=== PATIENT | female | born 2005 | race African-American/Black ===

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

== ENCOUNTER 2024-01-15 10:39 | Outpatient (AMB) | payer MEDICAID, SELFPAY ==
[2024-01-15 11:11] VITALS: BP 112/62; BMI 56.9
--- NOTE | 2024-01-15 11:11 | MHC.OFFVIS ---
Vital Signs 01/15/24 11:11 Height 5 ft 1 in Weight 301 lb BMI 56.9 BP 112/62 Intake Visit Reasons: pelvic pain Case Loader Operator Required: No Information Interpreted: clinical only Rehabilitation Case Coordinator: Rehabilitation Case Coordinator Present Allergies amoxicillin Adverse Reaction (Verified 01/15/24 11:14) Rash Medication List - Last Reconciled 01/15/24 by Jeannette Kitchen CNM levonorgestrel (Mirena) intrauterine Is last menstrual period known: No (IUD) HPI HPI pelvic pain: Details: Patient says she only sees Dr. Barone per his schedule was full. She wants to talk about getting her IUD taken she has had it for about a year and she says it was placed so that she would not get after her ectopic Dr. Barone put it in. She says he told her that it was really important to not get for 5-6 months. She would like to get in future. She had not really thought about what other method of control she might use. On questioning she thinks maybe pills. She says she would like it removed because it is uncomfortable lately when she has sex and sometimes she feels like period crampy the whole month. This started somewhat recently. [facility] Medical History Asthma Family History Paternal Grandmother Breast CA Social History Alcohol intake: never Current occupational status: student Current occupation: rt handed Female Reproductive History Menstrual Age of Menarche: 12 Duration of menses: <3 days control method: progestin IUCD Ectopics: 1 History of abnormal pap smear: No (no previous pap) Physical Exam Vital Signs: Last Vital Signs BP 112/62 01/15/24 11:11 BMI result Body Mass Index 56.9 Assessment & Plan Assessment & Plan (1) Family planning: Code(s): Z30.09 - Encounter for other general counseling and advice on contraception Category: Social Hx (2) Hx of ectopic : Code(s): Z87.59 - Personal history of other complications of , childbirth and the puerperium Category: Medical (3) Obesity, morbid, BMI 50 or higher: Code(s): E66.01 - Morbid (severe) obesity due to excess calories Category: Medical (4) Dyspareunia in female: Code(s): N94.10 - Unspecified dyspareunia Category: Medical (5) Presence of 52 mg levonorgestrel-releasing intrauterine device (IUD): Code(s): Z97.5 - Presence of (intrauterine) contraceptive device Category: Social Hx Plan See HPI. Explored the patient what she was told about how long she should avoid after the ectopic and what other health concerns she has she does not perceive is self as having any other health problems. Encouraged her to think carefully about what she would use control she thinks pills. She is sexually active. She recalled how the IUD was placed after the ectopic last year. I very much encouraged her to think about and begin to work on weight loss before placing herself at risk for in a place where she may desire a . For the pelvic discomfort with the IUD during intercourse I am going to order a pelvic ultrasound and we will have a visit after to discuss that. I discussed frankly increased risks of hypertension diabetes and many other complications in a with morbid obesity. Orders: Orders US pelvic and transvaginal Today E66.01 - Morbid (severe) obesity due to excess calories, N94.10 - Unspecified dyspareunia, Z30.09 - Encounter for other general counseling and advice on contraception, Z87.59 - Personal history of other complications of , childbirth and the puerperium, Z97.5 - Presence of (intrauterine) contraceptive device Coding Level of Care Code Est Pt Level 3 (20091) Diagnoses Family planning Z30.09 Hx of ectopic Z87.59 Obesity, morbid, BMI 50 or higher E66.01 Dyspareunia in female N94.10 Presence of 52 mg levonorgestrel-releasing intrauterine device (IUD) Z97.5
== END 2024-01-15 11:47 | disposition home or self-care (01) ==
LOC: HO.HWSM 10:39
PROVIDERS: PCP Pediatrics Adolescent Medicine; Visit Provider Advanced Practice Midwife
DX: Z30.09 Encounter for other general counseling and advice on contraception (principal); Z87.59 Personal history of other complications of pregnancy, childbirth and the puerperium; E66.01 Morbid (severe) obesity due to excess calories; N94.10 Unspecified dyspareunia; Z97.5 Presence of (intrauterine) contraceptive device
CPT/HCPCS: 99213

== ENCOUNTER → 2024-01-15 10:39 | Outpatient (BNVA) | payer MEDICAID, SELFPAY | PROVIDERS: PCP Pediatrics Adolescent Medicine; Visit Provider Advanced Practice Midwife | DX: Z30.09 Encounter for other general counseling and advice on contraception (principal); E66.01 Morbid (severe) obesity due to excess calories; N94.10 Unspecified dyspareunia; Z87.59 Personal history of other complications of pregnancy, childbirth and the puerperium; Z97.5 Presence of (intrauterine) contraceptive device | CPT/HCPCS: 99212 ==

== ENCOUNTER 2024-02-27 14:56 | Emergency (ER) | payer MEDICAID, SELFPAY ==
--- NOTE | 2024-02-27 15:18 | ED_ITS ---
HPI - General Adult General Chief complaint: Urogenital-Female Stated complaint: ? Time Seen by Provider: 02/27/24 15:22 Source: patient Mode of arrival: ambulatory Limitations: no limitations History of Present Illness ED Provider: Selina Membreno PA-C HPI narrative: 18 yo female presenting to the ER for evaluation of possible . she feels like her IUD may have moved and she might be . she used to be able to feel the IUD in place and used to have pain w/ intercourse. she saw her ob here in december and plan was for U/S but she has not gotten it yet. she no longer has pain with intercourse and no pain at rest or with sitting. no urinary symptoms. no abdominal pain. no N/V or headaches. she does not get a menstrual cycle since her IUD was placed over a year ago. she is here seeking blood test for . complaint: ? Related Data Home Medications ?Medication ?Instructions ?Recorded ?Confirmed levonorgestrel 21 mcg/24 hr (up to intrauterine 01/15/24 01/15/24 8 years) 52 mg intrauterine device (Mirena) Allergies Allergy/AdvReac Type Severity Reaction Status Date / Time amoxicillin AdvReac Rash Verified 02/27/24 15:22 Review of Systems Review of Systems: Yes all other systems are reviewed and are negative [facility] Past Medical History Medical History Asthma Family History Family History Paternal Grandmother Breast CA Social History Social History Alcohol intake: never Advance Directives: No Advance Directives Information Provided: No Current occupational status: student Current occupation: rt handed Physical Exam ED Vital Signs: Vital Signs - 24 hr 02/27/24 15:19 02/27/24 16:12 Temperature 98.6 F 98.6 F Pulse Rate 116 H 116 H Respiratory Rate 18 18 Blood Pressure 119/72 119/72 Pulse Oximetry 97 97 Oxygen Delivery Method Room Air Room Air BMI result Body Mass Index 57.9 Appearance: Alert. Oriented X3. No acute distress. HEENT: normal external inspection Neck: Normal inspection. Respiratory: No respiratory distress. speaking in complete sentences Abdomen: obese, normal inspection Skin: Skin warm and dry. Normal skin color. Normal skin turgor. No rashes. Extremities: No lower extremity edema. No joint swelling. Neuro/psych: Oriented X 3. grossly normal nonfocal Medical Decision Making Medical Decision Making [facility] Narrative: 18 yo female presenting for test. no pain from IUD. declining U/S today. she has no physical symptoms. family told her to come get checked out for possible . Urine test is negative. she is stable for discharge with outpatient follow up. Differential Diagnosis Differential Diagnoses: The differential diagnosis associated with the presentation includes possible , anxiety, IUD migration, less likely IUD perforation given no pain, IUD may have fallen out Lab Data [facility] Lab Attestation statement: I reviewed the patient's lab results. Labs: Lab Results 02/27/24 Range/Units 15:27 Urine Test NEGATIVE (NEGATIVE) External Record Review External record reviewed: Office record and Prior outpatient labs Tests considered The following testing was considered but not selected: pelvic U/S considered Critical Care Time Critical Care Time Critical Care Time: No Discharge Plan Discharge Clinical Impression: Anxiety Patient Disposition: Home, Self-Care Instructions: Anxiety (ED) Additional Instructions: you tested NEGATIVE for . Follow up with your front desk auxiliary If you develop new or worsening symptoms call 911 or come back to the ER for further evaluation. Prescriptions: No Action Mirena 21 mcg/24 hours (8 yrs) 52 mg intrauterine device intrauterine Interventions: ED Discharge Assessment Last Done: 02/27/24 16:12 Discharge Date/Time: 02/27/24 16:13 Print Language: [place]
[2024-02-27 15:19] VITALS: BP 119/72; PULSE 116; RESP 18; TEMP 37; O2SAT 97; BMI 57.9
[2024-02-27 15:38] LABS: UPreg QC Valid YES; Urine Pregnancy NEGATIVE (NEGATIVE)
[2024-02-27 16:12] VITALS: BP 119/72; PULSE 116; RESP 18; TEMP 37; O2SAT 97
== END 2024-02-27 16:13 | disposition home or self-care (01) ==
PROVIDERS: Physician Assistant; Emergency Provider Emergency Medicine
DX: F41.9 Anxiety disorder, unspecified (principal)
CPT/HCPCS: 81025; 99282

== ENCOUNTER 2024-03-10 06:59 | Emergency (ER) | payer MEDICAID, SELFPAY ==
--- NOTE | ~2024-03-10 | CT_ITS ---
EXAMINATION: CT ABDOMEN AND PELVIS WITH CONTRAST CLINICAL INFORMATION: Abdominal pain. COMPARISON: Ultrasound dated 10/04/2022 TECHNIQUE: Multidetector volumetric images were obtained from the superior aspect of the liver through the pubic symphysis following administration 85 mL of Omnipaque 350 intravenous contrast. Sagittal and coronal reformatted images were obtained on the technologist's workstation. Oral contrast: No This CT examination was performed using dose optimization techniques as appropriate, variously including the following: *Automated exposure control *Adjustment of mA and/or kV according to patient size (this includes techniques or standardized protocols for targeted exams where dose is matched to indication/reason for exam; i.e. extremities or head) *Use of iterative reconstruction technique DLP: 1198 mGy-cm FINDINGS: LUNG BASES: The visualized lung bases are unremarkable. LIVER, GALLBLADDER, AND BILIARY TREE: The liver is normal in size, shape, and attenuation. No focal hepatic lesion or biliary ductal dilatation is present. The gallbladder is unremarkable with no evidence of radiopaque gallstones, gallbladder wall thickening, or obvious pericholecystic inflammatory changes. PANCREAS: Unremarkable. SPLEEN: Unremarkable. ADRENAL GLANDS: Unremarkable. KIDNEYS AND URETERS: The kidneys are normal in size, shape, and attenuation. No hydronephrosis, hydroureter, or calculi seen. No perinephric stranding. BLADDER: Unremarkable. GASTROINTESTINAL TRACT: Stomach, small bowel, and colon are normal in caliber. No bowel wall thickening or surrounding inflammatory changes. Appendix is normal. No intraperitoneal free fluid or free air. ABDOMINAL WALL: No significant hernia is appreciated. LYMPH NODES: Normal. VASCULAR: Unremarkable. PELVIC VISCERA: IUD is situated in the lower uterine segment and cervix, abnormally positioned. Uterus is otherwise unremarkable. There is a 3.1 cm simple appearing right ovarian cyst, likely functional follicular cyst. This is of doubtful clinical significance. No recommended follow-up unless this is suspected to be a symptomatic region. OSSEOUS STRUCTURES: No fracture or malalignment. Mild arthrosis in the SI joints bilaterally. CT/CT abdomen pelvis w IV con IMPRESSION: 1. No acute intra-abdominal or intrapelvic abnormalities. 2. Malpositioned IUD in the lower uterine segment and cervix. Fleischner guidelines were followed.
[2024-03-10 07:10] VITALS: BP 126/87; PULSE 91; RESP 20; TEMP 37.2; O2SAT 100; BMI 68.4
--- NOTE | 2024-03-10 07:38 | ED.GENADULT ---
HPI - General Adult General Chief complaint: Abdominal Pain Stated complaint: Abd pain Time Seen by Provider: 03/10/24 07:37 Source: patient Mode of arrival: ambulatory Limitations: no limitations History of Present Illness ED Provider: Nuris Siddiqui PA-C HPI narrative: 18 year old female otherwise healthy, presenting the emergency department with new onset intermittent abdominal pain with heartburn for the past 2 days. She describes it as sharp pain with associated dizziness that predominately starts in the morning and gradually subsides after a few hours. She states the pain is better with food. Patient also reports light spotting of blood after urination yesterday. She states having IUD placement done 1 years old and has not had any menstrual cycle since then. Her last bowel movement was yesterday which she states was normal for her. She denies dysuria, discharge, fevers, back pain, chest pain, shortness of breath, headaches and visual changes. Onset (ago): day(s) (1) Relieving factors: none Exacerbating factors: none Associated symptoms: nausea/vomiting Treatments prior to arrival: none Related Data Home Medications ?Medication ?Instructions ?Recorded ?Confirmed levonorgestrel 21 mcg/24 hr (up to intrauterine 01/15/24 01/15/24 8 years) 52 mg intrauterine device (Mirena) Previous Rx's ?Medication ?Instructions ?Recorded omeprazole 20 mg capsule,delayed 20 mg PO DAILY #7 caps 03/10/24 release Allergies Allergy/AdvReac Type Severity Reaction Status Date / Time amoxicillin AdvReac Rash Verified 03/10/24 07:14 Review of Systems Constitutional: Constitutional: Reports no additional constitutional complaints, Denies chills, Denies fever(s) and Denies night sweats Eyes: Eyes: Reports no additional eye complaints, Denies blurry vision, Denies change in vision, Denies diplopia, Denies eye discharge, Denies loss of vision and Denies eye pain ENT: Denies dizziness Cardiovascular: Cardiovascular: Reports no additional cardiovascular complaints, Denies chest pain, Denies lightheadedness, Denies Loss of Consciousness and Denies dyspnea Respiratory: Respiratory: Reports no additional respiratory complaints and Denies dyspnea Gastrointestinal: Gastrointestinal: Reports no additional gastrointestinal complaints, Reports abdominal pain, Denies melena, Denies change in bowel habits, Denies change in stool character and Reports nausea Genitourinary: Genitourinary: Denies urinary frequency, Denies dysuria, Denies urinary incontinence, Denies urinary hesitancy and Denies urinary urgency Musculoskeletal: Musculoskeletal: Reports no additional musculoskeletal complaints, Denies numbness and Denies tingling Neurologic: Denies dizziness, Denies loss of vision, Denies numbness and Denies tingling Psychiatric: Psychiatric: Reports no additional psychiatric complaints Endocrine: Endocrine: Reports no additional endocrine complaints Hematologic/Lymphatic: Hematologic/Lymphatic: Reports no additional hematologic/lymphatic complaints Allergic/Immunologic: Allergic/Immunologic: Reports no additional allergic/immunologic complaints [facility] Past Medical History Attestation statement: The following information was validated with the patient. Source: old records reviewed and nursing notes reviewed Medical History Asthma Family History Family History Paternal Grandmother Breast CA Social History Social History Alcohol intake: never Advance Directives: No Advance Directives Information Provided: No Do you have a plan to hurt others: No Plan Current occupational status: student Current occupation: rt handed Physical Exam ED Vital Signs: Vital Signs - 24 hr 03/10/24 07:10 03/10/24 08:35 03/10/24 09:46 Temperature 98.9 F 98.5 F 98.5 F Pulse Rate 91 76 76 Respiratory Rate 20 16 16 Blood Pressure 126/87 141/76 H 141/76 H Pulse Oximetry 100 100 100 Oxygen Delivery Method Room Air Room Air Room Air BMI result Body Mass Index 68.4 Const General: cooperative, no acute distress, alert and awake Nutritional Appearance: well nourished Orientation/consciousness: patient oriented x3 Limitations: no limitations [facility] Head: Yes normal to inspection and Yes atraumatic Ears: hearing grossly normal bilaterally and external ears normal General nose exam: Normal external nose present, no nasal discharge noted and no epistaxis Face and sinus: Yes normal facial exam, No abrasion and No laceration Mouth: Normal oral and palatal mucosa present, no drooling and no muffled voice Eyes General: appearance normal, both eyes and all related structures Periorbital: periorbital findings normal Eyelids: Yes eyelids normal Conjunctivae: conjunctivae normal Pupils: Equal, round and reactive pupils present EOM: EOMs intact bilaterally Neck Neck: Yes normal visual inspection, Yes full ROM and Yes no lymphadenopathy Chest Chest palpation & inspection: normal inspection of the chest Resp Effort & Inspection: normal respiratory effort and able to speak in complete sentences GI Inspection: Yes normal to inspection Palpation (GI): Soft to palpation, not firm, nontender, no guarding and not rigid Neuro General: patient oriented x3 and moves all extremities Cranial nerves: Yes Equal, round and reactive pupils present Cognition (Neuro): normal cognition Extrem General: Yes normal to inspection, Yes full ROM and Yes capillary refill normal Psych Appearance: grossly normal Mental Status: mental status grossly normal Affect: normal affect Attitude: cooperative Thought process: Normal thought process present Thought content: Normal thought content present Insight: Good insight present (Psych) Medications Administered Discontinued Medications Generic Name Dose Route Start Last Admin Trade Name Freq PRN Reason Stop Dose Admin Sodium Chloride 1,000 mls @ 999 mls/hr 03/10/24 07:45 03/10/24 09:45 Ns IV 03/10/24 08:45 Infused .Q1H1M DEVAUGHN Infusion Iohexol 100 ml 03/10/24 08:29 03/10/24 08:30 Iohexol 350 Mg/Ml 100 Ml Infus..Btl IV 03/10/24 08:30 85 ml ONCE ONE Administration Ondansetron HCl 4 mg 03/10/24 07:39 03/10/24 08:33 Ondansetron Hcl 4 Mg/2 Ml Vial IVPUSH 03/10/24 07:40 4 mg ONCE ONE Administration Pantoprazole Sodium 40 mg 03/10/24 07:47 03/10/24 08:33 Pantoprazole Sodium 40 Mg/10 Ml Vial IVPUSH 03/10/24 07:48 40 mg ONCE ONE Administration Medical Decision Making Medical Decision Making MDM Narrative: Patient is a 18 year old assigned female at with no reported medical history of presenting to the emergency department today with intermittent upper and lower abdominal pain. Patient's physical exam was unremarkable. Patient's blood work was unremarkable. Patient's urine showed no acute process. Patient's CT abd/pelvis showed a malpositioned IUD and ovarian cysts but were otherwise unremarkable. Given patient's upper abdominal pain is improved with PO intake, I suspect it is a duodenal ulcer. Patient's lower abdominal pain is consistent with ovarian cyst rupture. I explained my physical exam findings as well as all test results to the patient. I answered all questions asked by the patient. I stressed the importance of the patient taking her medication as directed (either prescribed or as the over the counter packaging recommends). I stressed the importance of the patient following up with her primary care provider, a GI specialist, and an OBGYN. I stressed the importance of the patient returning to the emergency department immediately if her symptoms were to worsen or if she were to develop any dizziness, shortness of breath, difficulty breathing, chest pain, blurry vision, loss of vision, nausea, vomiting, abdominal pain, fever, chills, back pain, or any other complaints. Patient verbalized agreement and understanding with this treatment plan and discharge. Differential Diagnosis Differential Diagnoses: The differential diagnosis associated with the presentation includes Abdominal pain Epigastric pain Duodenal ulcer Ovarian cyst Admission/Observation Consideration of admission/observation: Escalation of care including admission/observation considered Patient would have been admitted to the hospital had her work up had any findings where hospital admission was appropriate and her clinical presentation warranted hospital admission. Lab Data [facility] Lab Attestation statement: I reviewed the patient's lab results. My interpretation of these results are in the [facility] Rationale portion of this note. 03/10/24 08:01 03/10/24 08:01 Labs: Lab Results 03/10/24 03/10/24 Range/Units 07:33 08:01 WBC 7.7 (4.8-10.8) X10*3/uL RBC 4.89 (4.20-5.50) X10*6/uL Hgb 12.9 (12.0-16.0) g/dl Hct 39.7 (37.0-47.0) % MCV 81.2 (80.0-98.0) fL MCH 26.4 L (27.0-33.0) pg MCHC 32.5 (31.0-35.0) g/dl RDW 13.7 (11.0-16.0) % Plt Count 321 (160-400) X10*3/uL MPV 9.8 (9.4-12.3) fL Immature Gran % (Auto) 0.4 (0.0-0.4) % Neut % (Auto) 67.4 (45-73) % Lymph % (Auto) 20.4 (20-40) % [place] % (Auto) 8.3 (2-11) % Eos % (Auto) 3.0 (0-4) % Baso % (Auto) 0.5 (0-2) % Lymph # (Auto) 1.6 (1.2-4.9) X10*3/uL [place] # (Auto) 0.6 (0.1-1.2) X10*3/uL Eos # (Auto) 0.2 (0.0-0.4) X10*3/uL Baso # (Auto) 0.0 (0.0-0.2) X10*3/uL Abs Immat Gran (auto) 0.03 (0.00-0.03) X10*3/uL Absolute Neuts (auto) 5.2 (2.0-8.3) x10*3/uL Absolute Nucleated RBC 0.000 (0.0-0.012) X10*3/uL Nucleated RBC % (auto) 0.0 (0.0-0.2) /100WBC Sodium 138 (135-145) mmol/L Potassium 4.0 (3.3-5.1) mmol/L Chloride 106 (96-108) mmol/L Carbon Dioxide 27 (22-29) mmol/L Anion Gap 9 L (12-20) BUN 13 (9-16) mg/dL Creatinine 0.72 (0.5-1.4) mg/dL Estim Creat Clear Calc 153.0 Estimated GFR > 60 Random Glucose 101 (60-115) mg/dL Calcium 9.3 (8.4-10.2) mg/dL Total Bilirubin 0.4 (0.0-1.0) mg/dL AST 15 (5-31) U/L ALT 17 (0-31) U/L Alkaline Phosphatase 45 (39-117) U/L Total Protein 7.1 (6.5-8.0) g/dL Albumin 3.7 (3.5-5.0) g/dL Lipase 16 (8-78) U/L Beta HCG, Quant < 2 mIU/mL Urine Color Yellow Urine Appearance Clear Urine pH 6.5 (5.0-9.0) Ur Specific [place] 1.025 (1.005-1.025) Urine Protein Negative (Neg-Trace) mg/dL Urine Glucose (UA) Negative (Negative) mg/dL Urine Ketones Negative (Negative) mg/dL Urine Blood Negative (Negative) Urine Nitrite Negative (Negative) Ur Leukocyte Esterase Negative (Negative) Urine RBC 0-2 (0-2) /HPF Urine WBC 0-5 (0-5) /HPF Ur Squamous Epith Cells 0-2 (0-2) /HPF Urine Bacteria None Seen (None Seen) Hyaline Casts 0-2 (0-2) /LPF Urine Test NEGATIVE (NEGATIVE) Independent Interpretation I performed an independent interpretation of an: CT Scan Interpretation: My interpretation is in agreement with the radiologist's impression of this imaging study. EXAMINATION: CT ABDOMEN AND PELVIS WITH CONTRAST CLINICAL INFORMATION: Abdominal pain. COMPARISON: Ultrasound dated 10/04/2022 TECHNIQUE: Multidetector volumetric images were obtained from the superior aspect of the liver through the pubic symphysis following administration 85 mL of Omnipaque 350 intravenous contrast. Sagittal and coronal reformatted images were obtained on the technologist's workstation. Oral contrast: No This CT examination was performed using dose optimization techniques as appropriate, variously including the following: *Automated exposure control *Adjustment of mA and/or kV according to patient size (this includes techniques or standardized protocols for targeted exams where dose is matched to indication/reason for exam; i.e. extremities or head) *Use of iterative reconstruction technique DLP: 1198 mGy-cm FINDINGS: LUNG BASES: The visualized lung bases are unremarkable. LIVER, GALLBLADDER, AND BILIARY TREE: The liver is normal in size, shape, and attenuation. No focal hepatic lesion or biliary ductal dilatation is present. The gallbladder is unremarkable with no evidence of radiopaque gallstones, gallbladder wall thickening, or obvious pericholecystic inflammatory changes. PANCREAS: Unremarkable. SPLEEN: Unremarkable. ADRENAL GLANDS: Unremarkable. KIDNEYS AND URETERS: The kidneys are normal in size, shape, and attenuation. No hydronephrosis, hydroureter, or calculi seen. No perinephric stranding. BLADDER: Unremarkable. GASTROINTESTINAL TRACT: Stomach, small bowel, and colon are normal in caliber. No bowel wall thickening or surrounding inflammatory changes. Appendix is normal. No intraperitoneal free fluid or free air. ABDOMINAL WALL: No significant hernia is appreciated. LYMPH NODES: Normal. VASCULAR: Unremarkable. PELVIC VISCERA: IUD is situated in the lower uterine segment and cervix, abnormally positioned. Uterus is otherwise unremarkable. There is a 3.1 cm simple appearing right ovarian cyst, likely functional follicular cyst. This is of doubtful clinical significance. No recommended follow-up unless this is suspected to be a symptomatic region. OSSEOUS STRUCTURES: No fracture or malalignment. Mild arthrosis in the SI joints bilaterally. CT/CT abdomen pelvis w IV con IMPRESSION: 1. No acute intra-abdominal or intrapelvic abnormalities. 2. Malpositioned IUD in the lower uterine segment and cervix. Fleischner guidelines were followed. Dictated By: Jaime Ren MD Signed By: Electronically signed by Jaime Ren MD 03/10/24 0914 Radiology Impression Discussion of test interpretation with radiology: I have reviewed the radiologist's reading. Discharge Plan Discharge Clinical Impression: Ovarian cyst, GERD (gastroesophageal reflux disease), Malpositioned intrauterine device Patient Disposition: Home, Self-Care Instructions: Ovarian Cyst (ED), Indigestion (ED) Additional Instructions: Given your upper abdominal pain is improved with eating, I'm suspicious you have a duodenal ulcer which may be contributing to your upper abdominal pain. Your CT scan showed evidence of a right ovarian cyst which is likely contributing to your lower abdominal pain. Additionally, it showed that your IUD is positioned inappropriately. You should follow up with an OBGYN for your IUD positioning and ovarian cyst and a GI specialist for your possible ulcer / upper abd pain. Follow up with your primary care provider. Return to the emergency department immediately if your symptoms worsen or if you develop any dizziness, shortness of breath, difficulty breathing, chest pain, blurry vision, loss of vision, nausea, vomiting, abdominal pain, fever, chills, back pain, or any other complaints. Prescriptions: New omeprazole 20 mg capsule,delayed release(DR/EC) 20 mg PO DAILY Qty: 7 0RF No Action Mirena 21 mcg/24 hours (8 yrs) 52 mg intrauterine device intrauterine Referrals: [facility] [Provider Group] (Call to establish and follow up with a GI specialist to discuss your upper abdominal pain.) Kell Lugo MD [Primary Care Provider] - Emmett Barone MD [Physician] - (Call to establish and follow up with an OBGYN for your malpositioned IUD and right ovarian cyst. ) Stand Alone Forms: Work/School Release Interventions: ED Discharge Assessment Last Done: 03/10/24 09:46 Discharge Date/Time: 03/10/24 09:47 Print Language: Greenlandic
[2024-03-10 07:43] LABS: Appearance Urine Clear; Color Urine Yellow; Glucose Urine UA Negative (Negative); Leukocyte Esterase Urine Negative (Negative); Nitrite Urine Negative (Negative); PH 6.5 (5.0-9.0); Specific Gravity - Urine 1.025 (1.005-1.025); UPreg QC Valid YES; Urine Blood Negative (Negative); Urine Ketones Negative (Negative); Urine Protein Negative (Neg-Trace)
[2024-03-10 07:44] LABS: Urine Pregnancy NEGATIVE (NEGATIVE)
[2024-03-10 07:48] LABS: Bacteria Urine None Seen (None Seen); Hyaline Casts Urine 0-2 /LPF (0-2); RBC Urine 0-2 /HPF (0-2); Squamous Epithelial Cell Urine 0-2 /HPF (0-2); WBC Urine 0-5 /HPF (0-5)
[2024-03-10 08:05] LABS: MANUAL DIFF FLAG NO
[2024-03-10 08:06] LABS: Basophils Percent Auto 0.5 % (0-2); Eosinophils Absolute Auto 0.2 X10*3/uL (0.0-0.4); Hematocrit 39.7 % (37.0-47.0); Hemoglobin 12.9 g/dl (12.0-16.0); Imm Gran Abs Auto 0.03 X10*3/uL (0.00-0.03); Imm Gran Pct Auto 0.4 % (0.0-0.4); Lymphocytes Absolute Auto 1.6 X10*3/uL (1.2-4.9); Lymphocytes Percent Auto 20.4 % (20-40); Mean Corpuscular HGB Conc 32.5 g/dl (31.0-35.0); Mean Corpuscular Hemoglobin 26.4 pg (27.0-33.0); Mean Corpuscular Volume 81.2 fL (80.0-98.0); Mean Platelet Volume 9.8 fL (9.4-12.3); Monocytes Absolute Auto 0.6 X10*3/uL (0.1-1.2); Monocytes Percent Auto 8.3 % (2-11); Neutrophils Absolute Auto 5.2 x10*3/uL (2.0-8.3); Neutrophils Percent Auto 67.4 % (45-73); Platelet Count 321 X10*3/uL (160-400); Red Blood Count 4.89 X10*6/uL (4.20-5.50); Red Cell Distribution Width 13.7 % (11.0-16.0); White Blood Count 7.7 X10*3/uL (4.8-10.8)
[2024-03-10 08:20] LABS: Alanine Aminotransferase 17 U/L (0-31); Albumin Level 3.7 g/dL (3.5-5.0); Alkaline Phosphatase 45 U/L (39-117); Anion Gap 9 (12-20); Aspartate Amino Transferase 15 U/L (5-31); Bilirubin Total 0.4 mg/dL (0.0-1.0); Blood Urea Nitrogen 13 mg/dL (9-16); Calcium 9.3 mg/dL (8.4-10.2); Carbon Dioxide 27 mmol/L (22-29); Chloride 106 mmol/L (96-108); Estimated Glomerular Filt Rate > 60; Glucose Random 101 mg/dL (60-115); Lipase 16 U/L (8-78); Sodium 138 mmol/L (135-145); Total Protein 7.1 g/dL (6.5-8.0)
[2024-03-10] MEDS: iohexoL 350 MG/ML 100 ML INFUS..BTL IV (08:30)
[2024-03-10] MEDS: Pantoprazole Sodium 40 MG/10 ML VIAL IVPUSH (08:33)
[2024-03-10] MEDS: 0.9 % Sodium Chloride 1,000 ML 999 ML IV (08:33)
[2024-03-10] MEDS: ondansetron HCL 4 MG/2 ML VIAL IVPUSH (08:33)
[2024-03-10 08:35] VITALS: BP 141/76; PULSE 76; RESP 16; TEMP 36.9; O2SAT 100
[2024-03-10 08:35] LABS: HCG Quantitative < 2 mIU/mL
[2024-03-10 09:46] VITALS: BP 141/76; PULSE 76; RESP 16; TEMP 36.9; O2SAT 100
== END 2024-03-10 09:47 | disposition home or self-care (01) ==
PROVIDERS: Physician Assistant Medical; Emergency Provider Emergency Medicine; PCP Pediatrics Adolescent Medicine
DX: N83.201 Unspecified ovarian cyst, right side (principal); T83.32XA Displacement of intrauterine contraceptive device, initial encounter; K21.9 Gastro-esophageal reflux disease without esophagitis; R10.30 Lower abdominal pain, unspecified; R42 Dizziness and giddiness; R12 Heartburn; R11.2 Nausea with vomiting, unspecified; R11.0 Nausea; Y76.8 Miscellaneous obstetric and gynecological devices associated with adverse incidents, not elsewhere classified; Y92.89 Other specified places as the place of occurrence of the external cause; Z79.899 Other long term (current) drug therapy
CPT/HCPCS: 36415; 74177; 80053; 81001; 81025; 83690; 84702; 85025; 96361; 96374; 96375; 99284; 99285; J2405; J2470; Q9967

== ENCOUNTER 2024-08-17 15:07 | Emergency (ER) | payer MEDICAID, SELFPAY ==
--- NOTE | ~2024-08-17 | US_ITS ---
CLINICAL HISTORY: Pelvic pain IUD malposition ovarian cyst US pelvis transabdominal and transvaginal with Doppler Comparison: CT/DE/SR - CT ABDOMEN PELVIS W IV CON - 03/10/24 08:20 EDT Findings: Transabdominal scanning performed for overall anatomy. Transvaginal scanning performed for additional detail. Normal size of the uterus. IUD is within the lower uterine segment. There is fluid in the lower uterine segment and cervical canal. No uterine mass. Ovaries normal in size and appearance. Both ovaries demonstrate color Doppler signal with normal arterial and venous spectral tracings. IMPRESSION: 1. Abnormally low position of IUD in lower uterine segment with fluid in the lower uterine segment and cervical canal. This document has been electronically signed by: Jesus Villanueva MD on 08/17/2024 20:20:50
[2024-08-17 15:36] VITALS: BP 145/86; PULSE 90; RESP 19; TEMP 36.7; O2SAT 98; BMI 63.7
--- NOTE | 2024-08-17 15:36 | ED_ITS ---
HPI - Abdominal Pain General Chief Complaint: Urogenital-Female Stated Complaint: lower abd/vaginal pain Time Seen by Provider: 08/17/24 17:46 Source: patient Mode of arrival: ambulatory Limitations: no limitations History of Present Illness ED Provider: HPI narrative: Patient's history of IUD placed 3 years ago with history of ovarian cyst complaining of pain in the lower abdomen for last 6 months got worse 1 week has pain while having intercourse no vaginal discharge has dysuria and frequency also feel nauseated no fever no chills Related Data Home Medications ?Medication ?Instructions ?Recorded ?Confirmed levonorgestrel 21 mcg/24 hr (up to intrauterine 01/15/24 01/15/24 8 years) 52 mg intrauterine device (Mirena) Previous Rx's ?Medication ?Instructions ?Recorded omeprazole 20 mg capsule,delayed 20 mg PO DAILY #7 caps 03/10/24 release desogestrel 0.15 mg-ethinyl 1 tab PO DAILY #168 tabs 08/17/24 estradiol 0.03 mg tablet (Apri) Allergies Allergy/AdvReac Type Severity Reaction Status Date / Time amoxicillin AdvReac Rash Verified 08/17/24 15:38 Review of Systems Review of Systems Yes all other systems are reviewed and are negative PMF Past Medical History Medical History Asthma Family History Family History Paternal Grandmother Breast CA Social History Social History Alcohol intake: never Advance Directives: No Advance Directives Information Provided: No Do you have a plan to hurt others: No Plan Current occupational status: student Current occupation: rt handed Physical Exam ED Vital Signs: Vital Signs - 24 hr 08/17/24 15:36 08/17/24 18:16 08/17/24 20:37 Temperature 98.1 F 98.6 F 98.3 F Pulse Rate 90 94 85 Respiratory Rate 19 16 18 Blood Pressure 145/86 H 120/66 144/65 H Pulse Oximetry 98 98 99 Oxygen Delivery Method Room Air Room Air Room Air BMI result Body Mass Index 63.7 Appearance: Alert. Oriented X3. No acute distress. ENT: Pharynx normal. Oral Mucosa moist Neck: Normal inspection. Neck supple. CVS: Normal heart rate and rhythm. Pulses normal. Respiratory: No respiratory distress. Equal air entry bilateral, no wheezing/rales/rhonchi Abdomen: Soft and diffuse suprapubic discomfort Bowel sounds are present, no mass palpable, no CVA tenderness Skin: Skin warm and dry. Normal skin color. Normal skin turgor. Extremities: No lower extremity edema. No calf tenderness Neuro: Oriented X 3. No motor deficit. Course Course Course Narrative: This is an RME: Additional HPI, ROS, PE not included below will be deferred to primary provider. RME assessment and note performed by: Zoey Chamberlain PA-C This is a 89-female who presents to the ER with complaint of abdominal pain. Had IUD placed 3 years ago. Reports that she has vaginal pain with intercourse and believes that the IUD is causing her to have pain. +nausea, vomiting. Reporting urinary frequency. Pain is suprapubic. She states that pain has increased significantly over the last week. Plan: UA, labs, further ER eval needed Medical Decision Making Medical Decision Making MDM Narrative: Patient with low position of IUD in ultrasound which causing the pain for last 6 months which was removed intact feeling much better at this time will discharge patient home Lab Data [facility] Lab Attestation statement: I reviewed the patient's lab results. 08/17/24 15:58 08/17/24 15:58 Labs: Lab Results 08/17/24 Range/Units 15:58 WBC 8.6 (4.8-10.8) X10*3/uL RBC 5.11 (4.20-5.50) X10*6/uL Hgb 13.1 (12.0-16.0) g/dl Hct 40.3 (37.0-47.0) % MCV 78.9 L (80.0-98.0) fL MCH 25.6 L (27.0-33.0) pg MCHC 32.5 (31.0-35.0) g/dl RDW 13.5 (11.0-16.0) % Plt Count 359 (160-400) X10*3/uL MPV 9.8 (9.4-12.3) fL Immature Gran % (Auto) 0.2 (0.0-0.4) % Neut % (Auto) 70.2 (45-73) % Lymph % (Auto) 19.2 L (20-40) % [place]cock % (Auto) 7.7 (2-11) % Eos % (Auto) 2.1 (0-4) % Baso % (Auto) 0.6 (0-2) % Lymph # (Auto) 1.7 (1.2-4.9) X10*3/uL [place] # (Auto) 0.7 (0.1-1.2) X10*3/uL Eos # (Auto) 0.2 (0.0-0.4) X10*3/uL Baso # (Auto) 0.1 (0.0-0.2) X10*3/uL Abs Immat Gran (auto) 0.02 (0.00-0.03) X10*3/uL Absolute Neuts (auto) 6.0 (2.0-8.3) x10*3/uL Absolute Nucleated RBC 0.000 (0.0-0.012) X10*3/uL Nucleated RBC % (auto) 0.0 (0.0-0.2) /100WBC Sodium 141 (135-145) mmol/L Potassium 4.1 (3.3-5.1) mmol/L Chloride 108 (96-108) mmol/L Carbon Dioxide 23 (22-29) mmol/L Anion Gap 14 (12-20) BUN 12 (9-16) mg/dL Creatinine 0.62 (0.5-1.4) mg/dL Estim Creat Clear Calc 197.6 Estimated GFR > 60 Random Glucose 86 (60-115) mg/dL Calcium 9.5 (8.4-10.2) mg/dL Magnesium 1.8 (1.6-2.6) mg/dL Total Bilirubin 0.4 (0.0-1.0) mg/dL Direct Bilirubin 0.1 (0.0-0.5) mg/dL AST 22 (5-31) U/L ALT 25 (0-31) U/L Alkaline Phosphatase 48 (39-117) U/L Total Protein 7.9 (6.5-8.0) g/dL Albumin 4.0 (3.5-5.0) g/dL Beta HCG, Quant < 2 mIU/mL Urine Color Yellow Urine Appearance Clear Urine pH 6.0 (5.0-9.0) Ur Specific [place] 1.025 (1.005-1.025) Urine Protein Negative (Neg-Trace) mg/dL Urine Glucose (UA) Negative (Negative) mg/dL Urine Ketones Negative (Negative) mg/dL Urine Blood Negative (Negative) Urine Nitrite Negative (Negative) Ur Leukocyte Esterase Trace H (Negative) Urine RBC 0-2 (0-2) /HPF Urine WBC 0-5 (0-5) /HPF Ur Squamous Epith Cells 3-5 (0-2) /HPF Urine Bacteria None Seen (None Seen) Hyaline Casts 0-2 (0-2) /LPF Radiology Impression Discussion of test interpretation with radiology: I have reviewed the radiologist's reading. Radiologist Impression: [place] [id number] Ultrasound Report Signed Patient: Nicolasa Aguilar MR#: [id number] : 2005 Acct:[id number] Age/Sex: 19 / F ADM Date: 08/17/24 Loc: .ED Attending Dr: Ordering Physician: Abdirizak Landers MD Date of Service: 08/17/24 Procedure(s): US pelvic and transvaginal Accession Number(s): [id number] cc: Kell Lugo MD; Abdirizak Landers MD~ CLINICAL HISTORY: Pelvic pain IUD malposition ovarian cyst US pelvis transabdominal and transvaginal with Doppler Comparison: CT/MA/SR - CT ABDOMEN PELVIS W IV CON - 03/10/24 08:20 EDT Findings: Transabdominal scanning performed for overall anatomy. Transvaginal scanning performed for additional detail. Normal size of the uterus. IUD is within the lower uterine segment. There is fluid in the lower uterine segment and cervical canal. No uterine mass. Ovaries normal in size and appearance. Both ovaries demonstrate color Doppler signal with normal arterial and venous spectral tracings. IMPRESSION: 1. Abnormally low position of IUD in lower uterine segment with fluid in the lower uterine segment and cervical canal. 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
[2024-08-17 16:05] LABS: MANUAL DIFF FLAG NO
[2024-08-17 16:09] LABS: Appearance Urine Clear; Basophils Absolute Auto 0.1 X10*3/uL (0.0-0.2); Basophils Percent Auto 0.6 % (0-2); Color Urine Yellow; Eosinophils Absolute Auto 0.2 X10*3/uL (0.0-0.4); Eosinophils Percent Auto 2.1 % (0-4); Glucose Urine UA Negative (Negative); Hematocrit 40.3 % (37.0-47.0); Hemoglobin 13.1 g/dl (12.0-16.0); Imm Gran Abs Auto 0.02 X10*3/uL (0.00-0.03); Imm Gran Pct Auto 0.2 % (0.0-0.4); Leukocyte Esterase Urine Trace (Negative); Lymphocytes Absolute Auto 1.7 X10*3/uL (1.2-4.9); Lymphocytes Percent Auto 19.2 % (20-40); Mean Corpuscular HGB Conc 32.5 g/dl (31.0-35.0); Mean Corpuscular Hemoglobin 25.6 pg (27.0-33.0); Mean Corpuscular Volume 78.9 fL (80.0-98.0); Mean Platelet Volume 9.8 fL (9.4-12.3); Monocytes Absolute Auto 0.7 X10*3/uL (0.1-1.2); Monocytes Percent Auto 7.7 % (2-11); Neutrophils Percent Auto 70.2 % (45-73); Nitrite Urine Negative (Negative); Platelet Count 359 X10*3/uL (160-400); Red Blood Count 5.11 X10*6/uL (4.20-5.50); Red Cell Distribution Width 13.5 % (11.0-16.0); Specific Gravity - Urine 1.025 (1.005-1.025); UMIC TRIGGER UACC YES; Urine Blood Negative (Negative); Urine Ketones Negative (Negative); Urine Protein Negative (Neg-Trace); White Blood Count 8.6 X10*3/uL (4.8-10.8)
[2024-08-17 16:21] LABS: Bacteria Urine None Seen (None Seen); Hyaline Casts Urine 0-2 /LPF (0-2); RBC Urine 0-2 /HPF (0-2); WBC Urine 0-5 /HPF (0-5)
[2024-08-17 16:38] LABS: Alanine Aminotransferase 25 U/L (0-31); Alkaline Phosphatase 48 U/L (39-117); Anion Gap 14 (12-20); Aspartate Amino Transferase 22 U/L (5-31); Bilirubin Direct 0.1 mg/dL (0.0-0.5); Bilirubin Total 0.4 mg/dL (0.0-1.0); Blood Urea Nitrogen 12 mg/dL (9-16); Calcium 9.5 mg/dL (8.4-10.2); Carbon Dioxide 23 mmol/L (22-29); Chloride 108 mmol/L (96-108); Creatinine Clr Calc Pharmacy 197.6; Estimated Glomerular Filt Rate > 60; Glucose Random 86 mg/dL (60-115); HCG Quantitative < 2 mIU/mL; Magnesium 1.8 mg/dL (1.6-2.6); Potassium 4.1 mmol/L (3.3-5.1); Sodium 141 mmol/L (135-145); Total Protein 7.9 g/dL (6.5-8.0)
[2024-08-17 18:16] VITALS: BP 120/66; PULSE 94; RESP 16; TEMP 37; O2SAT 98
[2024-08-17 20:37] VITALS: BP 144/65; PULSE 85; RESP 18; TEMP 36.8; O2SAT 99
[2024-08-17 21:03] VITALS: BP 136/67; PULSE 82; RESP 14; TEMP 36.9; O2SAT 96
[2024-08-17 21:06] VITALS: BP 136/67; PULSE 82; RESP 14; TEMP 36.9; O2SAT 96
[2024-08-18 14:48] LABS: CT PCR NOT DETECTED (Not Detect.); NG PCR NOT DETECTED (Not Detect.)
== END 2024-08-17 21:07 | disposition home or self-care (01) ==
PROVIDERS: Physician Assistant Medical; Emergency Provider Internal Medicine; PCP Pediatrics Adolescent Medicine
DX: R10.2 Pelvic and perineal pain (principal); R11.2 Nausea with vomiting, unspecified; R35.0 Frequency of micturition; R30.0 Dysuria; T83.89XA Other specified complication of genitourinary prosthetic devices, implants and grafts, initial encounter; Y76.2 Prosthetic and other implants, materials and accessory obstetric and gynecological devices associated with adverse incidents; Y92.89 Other specified places as the place of occurrence of the external cause; Z30.431 Encounter for routine checking of intrauterine contraceptive device; Z79.899 Other long term (current) drug therapy
CPT/HCPCS: 36415; 76830; 76856; 80048; 80076; 81001; 83735; 84702; 85025; 87491; 87591; 99284

== ENCOUNTER → 2024-08-17 17:58 | Outpatient (BNV) | payer MEDICAID, SELFPAY | PROVIDERS: Emergency Provider Internal Medicine; PCP Pediatrics Adolescent Medicine; Visit Provider Radiology Diagnostic Radiology | DX: T83.32XA Displacement of intrauterine contraceptive device, initial encounter (principal) | CPT/HCPCS: 76830; 76856 ==

== ENCOUNTER 2024-11-03 00:18 | Emergency (ER) | payer MEDICAID, SELFPAY ==
--- NOTE | ~2024-11-03 | XR_ITS ---
CLINICAL HISTORY: low back pain 3 views lumbar spine Comparison: None Findings: Normal heights of 5 lumbar type vertebrae. Small Schmorl's node of the upper endplate of the L4. No significant listhesis. No osseous spinal stenosis of the lumbar spine by radiographs. Moderate to severe stool burden in the [id number], including imaged cecum. Sacrum, SI joints, and hips are obscured. IMPRESSION: No acute compression fracture of the 5 lumbar vertebrae. This document has been electronically signed by: Kris Cruz MD on 11/03/2024 01:44:50
[2024-11-03 00:20] VITALS: BP 161/81; PULSE 94; RESP 18; TEMP 36.8; O2SAT 100; BMI 52.9
--- NOTE | 2024-11-03 01:00 | ED.BACK ---
HPI - Back Pain/Injury General Chief Complaint: Back Pain/Injury Stated Complaint: back pain Time Seen by Provider: 11/03/24 00:55 Source: patient Mode of arrival: ambulatory Limitations: no limitations History of Present Illness ED Provider: HPI Narrative: Patient no significant back problems noticed pain in the lower back since yesterday radiating to bilateral lower extremity with no weakness no paresthesia no urinary symptoms no injury Related Data Home Medications ?Medication ?Instructions ?Recorded ?Confirmed levonorgestrel 21 mcg/24 hr (up to intrauterine 01/15/24 01/15/24 8 years) 52 mg intrauterine device (Mirena) Previous Rx's ?Medication ?Instructions ?Recorded omeprazole 20 mg capsule,delayed 20 mg PO DAILY #7 caps 03/10/24 release desogestrel 0.15 mg-ethinyl 1 tab PO DAILY #168 tabs 08/17/24 estradiol 0.03 mg tablet (Apri) cyclobenzaprine 10 mg tablet 10 mg PO Q8H #20 tabs 11/03/24 ibuprofen 600 mg tablet 600 mg PO Q6H PRN fever or pain 11/03/24 #30 tabs Allergies Allergy/AdvReac Type Severity Reaction Status Date / Time amoxicillin AdvReac Rash Verified 11/03/24 00:21 Review of Systems Review of Systems: Yes all other systems are reviewed and are negative PMFSH Past Medical History Medical History Asthma Family History Family History Paternal Grandmother Breast CA Social History Social History Alcohol intake: never Advance Directives: No Advance Directives Information Provided: Yes Do you have a plan to hurt others: No Plan Current occupational status: student Current occupation: rt handed Physical Exam Vital Signs: Vital Signs: Last Vital Signs Temp 98.2 F 11/03/24 01:34 Pulse 94 11/03/24 01:34 Resp 18 11/03/24 01:34 BP 161/81 H 11/03/24 01:34 Pulse Ox 100 11/03/24 01:34 O2 Del Method Room Air 11/03/24 01:34 BMI result Body Mass Index 52.9 Appearance: Alert. Oriented X3. No acute distress. Obese ENT: Pharynx normal. Oral Mucosa moist Neck: Normal inspection. Neck supple. CVS: Normal heart rate and rhythm. Pulses normal. Respiratory: No respiratory distress. Equal air entry bilateral, no wheezing/rales/rhonchi Abdomen: Soft and nontender. Bowel sounds are present, no mass palpable, no CVA tenderness Skin: Skin warm and dry. Normal skin color. Normal skin turgor. Extremities: No lower extremity edema. No calf tenderness Back: Diffuse lumbar tenderness SLR negative bilaterally sacral sensation intact patient is ambulatory Neuro: Oriented X 3. No motor deficit. No sensory deficit.No cerebellar signs , cranial nerves II-XII intact Medications Administered Discontinued Medications Generic Name Dose Route Start Last Admin Trade Name Freq PRN Reason Stop Dose Admin Cyclobenzaprine HCl 10 mg 11/03/24 01:22 11/03/24 01:33 Cyclobenzaprine Hcl 10 Mg Tablet PO 11/03/24 01:23 10 mg ONCE ONE Administration Ibuprofen 600 mg 11/03/24 01:22 11/03/24 01:32 Ibuprofen 600 Mg Tablet PO 11/03/24 01:23 600 mg ONCE ONE Administration Medical Decision Making Medical Decision Making [facility] Narrative: Patient obese likely with lumbar strain will get x-ray check for the and UTI X-ray negative for fracture likely muscle strain the cause of the pain Lab Data [facility] Lab Attestation statement: I reviewed the patient's lab results. Labs: Lab Results 11/03/24 Range/Units 01:15 Urine Color Yellow Urine Appearance Clear Urine pH 6.0 (5.0-9.0) Ur Specific [place] >= 1.030 H (1.005-1.025) Urine Protein Negative (Neg-Trace) mg/dL Urine Glucose (UA) Negative (Negative) mg/dL Urine Ketones Trace (Negative) mg/dL Urine Blood Negative (Negative) Urine Nitrite Negative (Negative) Ur Leukocyte Esterase Negative (Negative) Urine Test NEGATIVE (NEGATIVE) Independent Interpretation I performed an independent interpretation of an: Plain X-Ray Interpretation: No fracture Discharge Plan Discharge Clinical Impression: Strain of lumbar region Patient Disposition: Home, Self-Care Instructions: Low Back Strain (ED), Lower Back Exercises (ED) Additional Instructions: Take ibuprofen and muscle relaxant as prescribed Follow up with your PCP if not better Prescriptions: New cyclobenzaprine 10 mg tablet 10 mg PO Q8H Qty: 20 0RF ibuprofen 600 mg tablet 600 mg PO Q6H PRN (Reason: fever or pain) Qty: 30 0RF No Action omeprazole 20 mg capsule,delayed release(DR/EC) 20 mg PO DAILY Qty: 7 0RF desogestrel-ethinyl estradiol [Apri] 0.15-0.03 mg tablet 1 tab PO DAILY Qty: 168 0RF Mirena 21 mcg/24 hours (8 yrs) 52 mg intrauterine device intrauterine Interventions: ED Discharge Assessment Last Done: 11/03/24 01:34 Discharge Date/Time: 11/03/24 01:35 Print Language: [place]
[2024-11-03 01:24] LABS: Appearance Urine Clear; Color Urine Yellow; Glucose Urine UA Negative (Negative); Leukocyte Esterase Urine Negative (Negative); Nitrite Urine Negative (Negative); Specific Gravity - Urine >= 1.030 (1.005-1.025); Urine Blood Negative (Negative); Urine Ketones Trace mg/dL (Negative); Urine Protein Negative (Neg-Trace)
[2024-11-03 01:25] LABS: UPreg QC Valid YES; Urine Pregnancy NEGATIVE (NEGATIVE)
[2024-11-03] MEDS: Ibuprofen 600 MG TABLET PO (01:32)
[2024-11-03] MEDS: Cyclobenzaprine HCl 10 MG TABLET PO (01:33)
[2024-11-03 01:34] VITALS: BP 161/81; PULSE 94; RESP 18; TEMP 36.8; O2SAT 100
--- NOTE | 2024-11-03 01:34 | PC.NURSE ---
Pt tatiana by in [facility] 1. Medicated per SEP and cleared for dc home.
== END 2024-11-03 01:35 | disposition home or self-care (01) ==
PROVIDERS: Emergency Provider Internal Medicine; PCP Pediatrics Adolescent Medicine
DX: S39.012A Strain of muscle, fascia and tendon of lower back, initial encounter (principal); X58.XXXA Exposure to other specified factors, initial encounter; M54.50 Low back pain, unspecified; Y93.9 Activity, unspecified; Y92.9 Unspecified place or not applicable; Y99.9 Unspecified external cause status
CPT/HCPCS: 72100; 81003; 81025; 99283

== ENCOUNTER → 2024-11-03 01:02 | Outpatient (BNV) | payer MEDICAID, SELFPAY | PROVIDERS: Emergency Provider Internal Medicine; PCP Pediatrics Adolescent Medicine; Visit Provider Radiology Neuroradiology | DX: M54.50 Low back pain, unspecified (principal) | CPT/HCPCS: 72100 ==

== ENCOUNTER 2025-01-11 21:05 | Emergency (ER) | payer MEDICAID, SELFPAY ==
[2025-01-11 21:16] VITALS: BP 155/92; PULSE 113; RESP 18; TEMP 36.9; O2SAT 100; BMI 62.4
--- NOTE | 2025-01-11 21:42 | ED_ITS ---
HPI - URI/Sore Throat General Chief Complaint: Upper Respiratory Symptoms Stated Complaint: needs to check covid/flu due to work / preg test Time Seen by Provider: 01/11/25 21:39 Source: patient Mode of arrival: ambulatory Limitations: no limitations History of Present Illness ED Provider: HPI Narrative: Patient has been feeling congested with sore throat running nose for last 2 days no fever no chills does have occasional cough also patient missed her menstruation on 01/03 requesting test Related Data Home Medications ?Medication ?Instructions ?Recorded ?Confirmed levonorgestrel 21 mcg/24 hr (up to intrauterine 01/15/24 01/15/24 8 years) 52 mg intrauterine device (Mirena) Previous Rx's ?Medication ?Instructions ?Recorded omeprazole 20 mg capsule,delayed 20 mg PO DAILY #7 caps 03/10/24 release desogestrel 0.15 mg-ethinyl 1 tab PO DAILY #168 tabs 08/17/24 estradiol 0.03 mg tablet (Apri) cyclobenzaprine 10 mg tablet 10 mg PO Q8H #20 tabs 11/03/24 ibuprofen 600 mg tablet 600 mg PO Q6H PRN fever or pain 11/03/24 #30 tabs Allergies Allergy/AdvReac Type Severity Reaction Status Date / Time amoxicillin AdvReac Rash Verified 01/11/25 21:19 Review of Systems Review of Systems: Yes all other systems are reviewed and are negative COUNTS INCLUDE 234 BEDS AT THE [facility] Past Medical History Medical History Asthma Family History Family History Paternal Grandmother Breast CA Social History Social History Alcohol intake: never Advance Directives: No Advance Directives Information Provided: No Current occupational status: student Current occupation: rt handed Physical Exam Vital Signs: Vital Signs: Last Vital Signs Temp 98.5 F 01/11/25 21:16 Pulse 113 H 01/11/25 21:16 Resp 18 01/11/25 21:16 BP 155/92 H 01/11/25 21:16 Pulse Ox 100 01/11/25 21:16 O2 Del Method Room Air 01/11/25 21:16 BMI result Body Mass Index 62.4 Appearance: Alert. Oriented X3. No acute distress. Eyes: No pallor or icterus ENT: Pharynx slight erythema Oral Mucosa moist tympanic membrane intact Neck: Normal inspection. Neck supple. CVS: Normal heart rate and rhythm. Pulses normal. Respiratory: No respiratory distress. Equal air entry bilateral, no wheezing/rales/rhonchi Abdomen: Soft and nontender. Bowel sounds are present, no mass palpable, no CVA tenderness Skin: Skin warm and dry. Normal skin color. Normal skin turgor. Extremities: No lower extremity edema. No calf tenderness Neuro: Oriented X 3. Medical Decision Making Medical Decision Making [facility] Narrative: Patient with viral URI COVID flu influenza strep test negative urine also negative for Lab Data [facility] Lab Attestation statement: I reviewed the patient's lab results. Labs: Lab Results 01/11/25 01/11/25 01/11/25 Range/Units 17:15 21:28 23:48 Urine Color Yellow Urine Appearance Cloudy Urine pH 6.0 (5.0-9.0) Ur Specific [place] >= 1.030 H (1.005-1.025) Urine Protein Trace (Neg-Trace) mg/dL Urine Glucose (UA) Negative (Negative) mg/dL Urine Ketones Trace (Negative) mg/dL Urine Blood Negative (Negative) Urine Nitrite Negative (Negative) Ur Leukocyte Esterase Negative (Negative) Urine Test NEGATIVE (NEGATIVE) Influenza Type A (PCR) NEGATIVE (Negative) Influenza Type B (PCR) NEGATIVE (Negative) RSV RNA Qual (PCR) NEGATIVE (Negative) SARS-CoV-2 RNA (RT-PCR) NEGATIVE (Negative) S. 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
[2025-01-11 21:47] LABS: IDNOW Serial# 58CA691E; Strep A Nucleic Acid Negative (Negative)
[2025-01-11 22:18] LABS: Influenza A PCR NEGATIVE (Negative); Influenza B PCR NEGATIVE (Negative); Resp Syncy Virus RNA Qual PCR NEGATIVE (Negative); SARS COV2 PCR INHOUSE NEGATIVE (Negative)
--- NOTE | 2025-01-11 22:25 | PC.NURSE ---
pt still unable to provide urine sample
[2025-01-11 23:54] LABS: Appearance Urine Cloudy; Color Urine Yellow; Glucose Urine UA Negative (Negative); Leukocyte Esterase Urine Negative (Negative); Nitrite Urine Negative (Negative); Specific Gravity - Urine >= 1.030 (1.005-1.025); Urine Blood Negative (Negative); Urine Ketones Trace mg/dL (Negative); Urine Protein Trace mg/dL (Neg-Trace)
[2025-01-11 23:56] LABS: UPreg QC Valid YES; Urine Pregnancy NEGATIVE (NEGATIVE)
[2025-01-12 00:17] VITALS: BP 130/65; PULSE 84; RESP 18; TEMP 36.7; O2SAT 100
== END 2025-01-12 00:18 | disposition home or self-care (01) ==
PROVIDERS: Emergency Provider Internal Medicine; PCP Internal Medicine Hematology & Oncology
DX: J06.9 Acute upper respiratory infection, unspecified (principal); R05.9 Cough, unspecified; J02.9 Acute pharyngitis, unspecified; Z03.818 Encounter for observation for suspected exposure to other biological agents ruled out; Z79.899 Other long term (current) drug therapy
CPT/HCPCS: 0241U; 81003; 81025; 87651; 99283; 99284